=== PATIENT | female | born 1995 ===

== ENCOUNTER → 2021-06-26 16:01 | Observation (INO) ==
[2021-06-26 15:34] LABS: Amorphous Sediment,Urine Few per hpf (None-Few); Bacteria,Urine Few per hpf (None-Few); Bilirubin,Urine Negative (Negative); Blood,Urine Negative (Negative); Clarity,Urine Turbid (Clear); Color,Urine Light-Yellow (Yellow); Glucose,Urine (UA) Normal (Normal); Ketones,Urine Negative (Negative); Leukocyte Esterase,Urine Large (Negative); Mucus,Urine Few per lpf (None-Few); Nitrite,Urine Negative (Negative); Protein,Urine Trace mg/dL (Neg-Trace); Specific Gravity,Urine 1.016 (1.010-1.025); Squamous Epithelial Cell,Urine Few per hpf (None-Few); Urobilinogen,Urine Normal (Normal); WBC,Urine 50-100 per hpf (0-3)
[2021-06-26 16:15] LABS: Gardnerella DNA Not Detected (Not Detect); Trichomonas DNA Not Detected (Not Detect)
[2021-06-26 16:16] LABS: Candida DNA DETECTED (Not Detect)
== END | disposition home or self-care (01) ==
LOC: 1NENULAB
PROVIDERS: ADMIT Advanced Practice Midwife; ATTEND Advanced Practice Midwife

== ENCOUNTER → 2021-08-22 22:08 | Observation (INO) ==
[2021-08-22 21:24] LABS: Bacteria,Urine Few per hpf (None-Few); Bilirubin,Urine Negative (Negative); Blood,Urine Trace (Negative); Clarity,Urine Turbid (Clear); Color,Urine Yellow (Yellow); Glucose,Urine (UA) Normal (Normal); Ketones,Urine Negative (Negative); Leukocyte Esterase,Urine Large (Negative); Mucus,Urine Few per lpf (None-Few); Nitrite,Urine Negative (Negative); Protein,Urine Trace mg/dL (Neg-Trace); RBC,Urine 50-100 per hpf (0-3); Specific Gravity,Urine 1.013 (1.010-1.025); Squamous Epithelial Cell,Urine Few per hpf (None-Few); Urobilinogen,Urine Normal (Normal); WBC,Urine 30-50 per hpf (0-3)
[~2021-08-22 22:08] MED LIST: *HR* Nalbuphine 10 MG/ML AMPUL IM PRN; *HR* Promethazine 25 MG/ML VIAL IM ONE
== END | disposition home or self-care (01) ==
LOC: 1NENULAB
PROVIDERS: ADMIT Advanced Practice Midwife; ATTEND Advanced Practice Midwife

== ENCOUNTER 2021-08-24 21:51 | Inpatient (IN) ==
[2021-08-24] MEDS ORDERED: Ondansetron 4 MG/2 ML VIAL IVP PRN (21:52)
[2021-08-24] MEDS ORDERED: Lidocaine 1% 20 ML MDV INFILT PRN (21:52)
[2021-08-24] MEDS ORDERED: Azithromycin 500 MG in 0.9 % Sodium Chloride 250 ML IVPB PRN (21:52)
[2021-08-24] MEDS ORDERED: Naloxone 0.4 MG/ML INJ IVP PRN (21:52)
[2021-08-24] MEDS ORDERED: Metoclopramide 10 MG/2 ML VIAL IVP PRN (21:52)
[2021-08-24] MEDS ORDERED: Famotidine 20 MG/2 ML VIAL IVP PRN (21:52)
[2021-08-24] MEDS ORDERED: *HR* Nalbuphine 10 MG/ML AMPUL IV PRN (21:52)
[2021-08-24] MEDS ORDERED: miSOPROStoL 25 MCG TABLET PO PRN (21:54)
[2021-08-24 22:37] LABS: Basophils % 0.5 %; Eosinophils # 0.1 K/mcL (0.0-0.6); Eosinophils % 1.1 %; Hematocrit 30.8 % (35.3-44.9); Hemoglobin 9.5 g/dL (11.5-15.4); Immature Granulocytes % 0.6 % (0-4); Lymphocytes # 2.4 K/mcL (0.6-4.6); Lymphocytes % 27.8 %; Mean Corpuscular HGB Conc 30.8 g/dL (31.6-35.5); Mean Corpuscular Hemoglobin 21.9 pg (28.0-33.3); Mean Corpuscular Volume 71.1 fL (83.0-100.0); Mean Platelet Volume 9.8 fL (9.4-12.4); Monocytes # 0.6 K/mcL (0.0-1.3); Monocytes % 7.2 %; Neutrophils # 5.5 K/mcL (1.6-8.9); Nucleated Red Blood Cells 0.7 /100 WBC (0); Platelet Count 336 K/mcL (140-400); Red Blood Count 4.33 M/mcL (3.82-4.97); Segmented Neutrophils % 62.8 %; White Blood Count 8.7 K/mcL (4.3-11.1)
[2021-08-24 22:45] LABS: Amphetamine Screen,Urine Negative ng/mL (Cutoff=1000); Barbiturate Screen,Urine Negative ng/mL (Cutoff=200); Benzodiazepines Screen,Urine Negative ng/mL (Cutoff=200); Cannabinoid Screen,Urine Negative ng/mL (Cutoff = 50); Cocaine Screen,Urine Negative ng/mL (Cutoff= 300); Opiate Screen,Urine Negative ng/mL (Cutoff=300); Phencyclidine Screen,Urine Negative ng/mL (Cutoff=25)
[2021-08-24 22:50] LABS: Anisocytosis 3+ (Not Present); Hypochromasia Present (Not Present); Microcytosis Present (Not Present)
[2021-08-24 22:51] LABS: Platelet Estimate Normal (Normal)
[2021-08-24 23:21] LABS: Influenza A PCR Negative (Negative); Influenza B PCR Negative (Negative); Resp. Syncytial Virus PCR Negative (Negative)
[2021-08-24 23:24] LABS: SARS-CoV-2 by PCR (In House) Negative (Negative)
[2021-08-25] MEDS ORDERED: Oxytocin 30 UNIT/503 ML BAG IVC SCH (04:00)
[2021-08-25] MEDS: Ringers Solution, Lactated 1,000 ML IVC SCH ×2 (04:14→05:40)
[2021-08-25] MEDS ORDERED: EPHEDrine 50 MG/ML VIAL IVP PRN (05:07)
[2021-08-25] MEDS ORDERED: *HR* FentaNYL (PF) 100 MCG/2 ML VIAL EP ONE (05:07)
[2021-08-25] MEDS ORDERED: Ropivacaine/PF 0.2% 20 ML VIAL EP ONE (05:07)
[2021-08-25] MEDS ORDERED: Epidural Premix (fent/bupiv) 110 ML EP ONE (05:13)
[2021-08-25] MEDS ORDERED: Epidural Premix (fent/bupiv) 110 ML EP SCH (05:15)
[2021-08-25] MEDS ORDERED: Rho Immune Globulin 1,500 UNIT SYRINGE IM PRN (10:16)
[2021-08-25] MEDS ORDERED: Lanolin 7 G OINT...G. TP PRN (10:16)
[2021-08-25] MEDS ORDERED: Benzocaine/Menthol 56 GM AEROSOL SPRAY TP PRN (10:16)
[2021-08-25] MEDS ORDERED: Ondansetron ODT 4 MG TAB.RAPDIS SL PRN (10:16)
[2021-08-25] MEDS ORDERED: Measles/Mumps/Rubella Vacc 0.5 ML VIAL SQ PRN (10:16)
[2021-08-25] MEDS: Prenatal Vit/FA 1 EACH TABLET PO SCH (13:07)
[2021-08-25] MEDS: Acetaminophen 325 MG TABLET PO SCH ×3 (13:07→20:16)
[2021-08-25 13:34] VITALS: O2SAT 99
[2021-08-25] MEDS: Ibuprofen 600 MG TABLET PO SCH ×2 (17:31→20:16)
[2021-08-26 06:07] LABS: Basophils # 0.1 K/mcL (0.0-0.2); Basophils % 0.6 %; Eosinophils # 0.2 K/mcL (0.0-0.6); Eosinophils % 2.6 %; Hematocrit 24.9 % (35.3-44.9); Immature Granulocytes % 0.4 % (0-4); Lymphocytes # 2.7 K/mcL (0.6-4.6); Lymphocytes % 28.8 %; Mean Corpuscular HGB Conc 30.9 g/dL (31.6-35.5); Mean Corpuscular Hemoglobin 22.4 pg (28.0-33.3); Mean Corpuscular Volume 72.4 fL (83.0-100.0); Mean Platelet Volume 9.8 fL (9.4-12.4); Monocytes # 0.5 K/mcL (0.0-1.3); Monocytes % 5.3 %; Nucleated Red Blood Cells 0.5 /100 WBC (0); Platelet Count 293 K/mcL (140-400); Red Blood Count 3.44 M/mcL (3.82-4.97); Red Cell Distribution Width 24.6 % (11.5-14.5); Segmented Neutrophils % 62.3 %; White Blood Count 9.4 K/mcL (4.3-11.1)
[2021-08-26] MEDS: Acetaminophen 325 MG TABLET PO SCH (06:23)
[2021-08-26] MEDS: Ibuprofen 600 MG TABLET PO SCH (06:23)
[2021-08-26 06:32] LABS: Hemoglobin 7.7 g/dL (11.5-15.4); Neutrophils # 5.9 K/mcL (1.6-8.9)
[2021-08-26 06:48] VITALS: BP 109/73; PULSE 80; TEMP 98.4
[2021-08-26 07:11] LABS: Anisocytosis 3+ (Not Present); Platelet Estimate Normal (Normal); Polychromasia 1+ (Not Present)
[2021-08-26 07:12] LABS: Hypochromasia Present (Not Present)
[2021-08-26] MEDS: Prenatal Vit/FA 1 EACH TABLET PO SCH (07:47)
== END 2021-08-26 12:03 | disposition home or self-care (01) | DRG 560 ==
LOC: 1NENULAB 21:51 → 1NENUOBS 08-25 11:36
PROVIDERS: ADMIT Obstetrics & Gynecology; ATTEND Obstetrics & Gynecology